=== PATIENT | male | born 1980 | race Caucasian/White ===

== ENCOUNTER 2019-06-13 05:53 | Emergency (ER) | payer OTHER ==
[~2019-06-13] VITALS: Ht 195.6 cm; Wt 90.7 kg
[2019-06-13] MEDS ORDERED: NEXIUM20 M1 PO (06:01)
[2019-06-13 06:20] VITALS: BP 137/93
[2019-06-13] MEDS ORDERED: PREDNISONE 20 M20 M1 PO (06:20)
[2019-06-13] MEDS ORDERED: NORCO 5-325 TA1 EAC1 PO (06:20)
== END 2019-06-13 06:20 | disposition home or self-care (01) ==
LOC: M.ERS 05:53
DX: M25.511 Pain in right shoulder (principal)